=== PATIENT | male | born 1930 | race Caucasian/White ===

== ENCOUNTER 2016-12-03 19:31 | Inpatient (IN) | payer MEDICARE ==
[~2016-12-03] VITALS: Ht 188 cm; Wt 65.9 kg
[2016-12-03] MEDS ORDERED: SODIUM CHLORIDE 0.9% 1,000ML IVBOLUS ONE (20:00)
[2016-12-03] MEDS ORDERED: SODIUM CHLORIDE FLUSH 10ML SYR IVF ONE (20:00)
[2016-12-03 20:29] LABS: ASPARTATE AMINO TRANSFERASE 22 U/L (15-37); BLOOD UREA NITROGEN 18 mg/dL (7-18)
[2016-12-03 20:34] LABS: IS PT STATUS REG ER OR PRE ER? YES
[2016-12-04] VITALS (13 sets, daily range): BP systolic 139–174; BP diastolic 56–88
[2016-12-04] MEDS ORDERED: OXYcodone/APAP 5/325MG TABLET ONE (00:42)
[2016-12-04] MEDS ORDERED: ONDANSETRON ODT 4 MG PO PRN (01:30)
[2016-12-04] MEDS ORDERED: ACETAMINOPHEN 325 MG TABLET PO PRN (01:30)
[2016-12-04] MEDS ORDERED: HYDROcodone/APAP 5/325 TABLET PO PRN (01:30)
[2016-12-04] MEDS ORDERED: LABETALOL 5MG/ML, 20ML IV PRN (01:30)
[2016-12-04] MEDS: OXYcodone/APAP 5/325MG TABLET PO PRN ×2 (01:33→11:27)
[2016-12-04] MEDS ORDERED: SODIUM CHLORIDE 0.9% 1,000 ML IV SCH (02:00)
[2016-12-04] MEDS ORDERED: FUROSEMIDE 20 MG/2 ML IVPush ONE (05:00)
[2016-12-04 06:48] LABS: RAPID INFLUENZA A Negative (Negative); RAPID INFLUENZA B Negative (Negative)
[2016-12-04 08:47] LABS: TOTAL IRON BINDING CAPACITY 387 mcg/dL (250-450)
[2016-12-04] MEDS: FUROSEMIDE 20 MG/2 ML IV SCH (10:35)
[2016-12-04] MEDS: PANTOPRAZOLE 40 MG IV IVP SCH (10:36)
[2016-12-04] MEDS ORDERED: MOVIPREP POWDER 1 PREP KIT PO ONE (16:00)
[2016-12-05] VITALS (12 sets, daily range): BP systolic 133–189; BP diastolic 69–87
[2016-12-05 02:05] LABS: BLOOD UREA NITROGEN 15 mg/dL (7-18)
[2016-12-05] MEDS: OXYcodone/APAP 5/325MG TABLET PO PRN (03:53)
[2016-12-05] MEDS: PANTOPRAZOLE 40 MG IV IVP SCH ×2 (07:48→08:52)
[2016-12-05] MEDS ORDERED: MOVIPREP POWDER 1 PREP KIT PO ONE (08:30)
[2016-12-05] MEDS: IRON SUCROSE COMPLEX 100MG/5ML IV SCH (08:52)
[2016-12-05] MEDS ORDERED: D5%-0.45% NACL 1,000 ML IV SCH (09:00)
[2016-12-05] MEDS: FUROSEMIDE 20 MG/2 ML IV SCH (09:25)
[2016-12-05] MEDS ORDERED: PROPOFOL 10 MG/ML, 20ML ONE (09:41)
[2016-12-05] MEDS ORDERED: ACETAMINOPHEN 325 MG TABLET PO PRN (14:30)
[2016-12-05] MEDS ORDERED: OXYcodone 5 MG/5 ML ORAL.SOL UDC PO PRN (14:30)
[2016-12-05] MEDS ORDERED: HYDROmorphone 1 MG/ML, 1ML IV PRN ×2 (14:30→17:00)
[2016-12-05] MEDS ORDERED: ALBUTEROL/IPRATROPIUM 2.5MG/0.5MG, 3 ML NPPB PRN (14:30)
[2016-12-05] MEDS ORDERED: LABETALOL 5MG/ML, 20ML IV PRN ×2 (14:30→17:00)
[2016-12-05] MEDS ORDERED: MIDAZOLAM 1 MG/ML, 2ML IV PRN (14:30)
[2016-12-05] MEDS ORDERED: ONDANSETRON 2MG/ML, 2ML IVPush PRN ×2 (14:30→17:00)
[2016-12-05] MEDS ORDERED: EPHEDRINE 50 MG/ML, 1ML IVPush PRN (14:30)
[2016-12-05] MEDS ORDERED: PROMETHAZINE 25 MG/ML, 1ML IV PRN (14:30)
[2016-12-05] MEDS ORDERED: MIDAZOLAM 1 MG/ML, 2ML ONE (15:25)
[2016-12-05] MEDS ORDERED: FENTANYL PF 100 MCG/2ML ONE ×2 (15:25→17:14)
[2016-12-05] MEDS ORDERED: FENTANYL PF 100 MCG/2ML IV PRN (17:00)
[2016-12-05] MEDS ORDERED: hydrALAzine 20 MG/ML, 1ML ONE (17:14)
[2016-12-05] MEDS: FENTANYL PF 100 MCG/2ML IV PRN ×2 (17:16→17:22)
[2016-12-06 02:47] VITALS: BP 154/83
[2016-12-06 07:13] VITALS: BP 143/73
[2016-12-06] MEDS: IRON SUCROSE COMPLEX 100MG/5ML IV SCH (10:09)
[2016-12-06] MEDS: ENOXAPARIN 40 MG/0.4 ML SQ SCH (11:45)
[2016-12-06 13:42] VITALS: BP 138/67
[2016-12-06 20:04] VITALS: BP 143/66
[2016-12-07 03:51] VITALS: BP 138/75
[2016-12-07 09:36] VITALS: BP 124/71
[2016-12-07] MEDS: ENOXAPARIN 40 MG/0.4 ML SQ SCH (09:38)
[2016-12-07] MEDS ORDERED: ACET325T14 PO (10:55)
[2016-12-07] MEDS ORDERED: FERR324T8 PO (10:55)
[2016-12-07] MEDS ORDERED: ALBU8.5H3 IH (10:55)
[2016-12-07] MEDS ORDERED: DOCU-30 PO (10:55)
[2016-12-07] MEDS ORDERED: Oxycodone Hcl/Acetaminophen PO (10:55)
[2016-12-07] MEDS ORDERED: MULT-412 PO (10:55)
[2016-12-07] MEDS ORDERED: PNEUMOCOCCAL 23 VACCINE IM-VACC ONE (11:30)
== END 2016-12-07 14:21 | DRG 394 ==
LOC: ED 23:59 → EDIP 12-04 00:15 → ICU 12-04 02:44 → 3NW 12-04 17:20
PROVIDERS: ADMIT Hospitalist; ATTEND Hospitalist
PROC: 0T9B70Z Drainage of Bladder with Drainage Device, Via Natural or Artificial Opening (ICD-10-PCS; 2016-12-05)
PROC: 0DBH8ZX Excision of Cecum, Via Natural or Artificial Opening Endoscopic, Diagnostic (ICD-10-PCS; 2016-12-05)
PROC: 0DBK8ZX Excision of Ascending Colon, Via Natural or Artificial Opening Endoscopic, Diagnostic (ICD-10-PCS; 2016-12-05)
PROC: 0DB68ZX Excision of Stomach, Via Natural or Artificial Opening Endoscopic, Diagnostic (ICD-10-PCS; 2016-12-05)
PROC: 30233N1 Transfusion of Nonautologous Red Blood Cells into Peripheral Vein, Percutaneous Approach (ICD-10-PCS; principal; 2016-12-05 14:00)
DX: D12.2 Benign neoplasm of ascending colon (principal); Z68.1 Body mass index [BMI] 19.9 or less, adult; E46 Unspecified protein-calorie malnutrition; D50.0 Iron deficiency anemia secondary to blood loss (chronic); Z66 Do not resuscitate; J44.9 Chronic obstructive pulmonary disease, unspecified; I10 Essential (primary) hypertension; K57.90 Diverticulosis of intestine, part unspecified, without perforation or abscess without bleeding; D12.0 Benign neoplasm of cecum; R26.2 Difficulty in walking, not elsewhere classified; I71.4 Abdominal aortic aneurysm, without rupture; K40.90 Unilateral inguinal hernia, without obstruction or gangrene, not specified as recurrent; M25.471 Effusion, right ankle; Z90.3 Acquired absence of stomach [part of]; Z87.891 Personal history of nicotine dependence; Z87.11 Personal history of peptic ulcer disease; Z79.899 Other long term (current) drug therapy
CPT/HCPCS: 36415; 36430; 70450; 71020; 80048; 80053; 80061; 81003; 83540; 83550; 83735; 84439; 84443; 84484; 85014; 85018; 85025; 85610; 85730; 86850; 86900; 86923; 87400; 88305; 90732; 93005; 93306; J1650; J1756; J2250; J2704; J3010; C9113; J1940; J7030; P9016

== ENCOUNTER 2017-07-22 05:49 | Emergency (ER) | payer MEDICARE, OTHER ==
[~2017-07-22] VITALS: Ht 175.3 cm; Wt 65.3 kg
[~2017-07-22 05:49] MED LIST: ACET325T14 PO; ALBU8.5H8 IH; DOCU-131 PO; FERR324T8 PO; MULT-412 PO; Oxycodone Hcl/Acetaminophen PO
[2017-07-22] MEDS ORDERED: ONDANSETRON 2MG/ML, 2ML ONE (06:21)
[2017-07-22 06:26] LABS: HEMATOCRIT 42.1 % (39.2-51.8); HEMOGLOBIN 14.4 g/dL (13.7-18.0); WHITE BLOOD COUNT 6.3 x10^3/uL (3.4-10)
[2017-07-22] MEDS ORDERED: morphine SULFATE 10 MG/ML, 1ML ONE (06:29)
[2017-07-22] MEDS ORDERED: SODIUM CHLORIDE FLUSH 10ML SYR IVF ONE (06:30)
[2017-07-22] MEDS ORDERED: ONDANSETRON 2MG/ML, 2ML IVPush ONE (06:30)
[2017-07-22 06:36] LABS: ASPARTATE AMINO TRANSFERASE 16 U/L (15-37); BLOOD UREA NITROGEN 15 mg/dL (7-18)
[2017-07-22] MEDS: MORPHINE SULFATE 4 MG/ML, 1ML IVPush PRN ×2 (06:40→08:20)
[2017-07-22] MEDS ORDERED: AMLO5TAB2 PO (06:46)
[2017-07-22] MEDS ORDERED: GABA300C10 PO (06:46)
[2017-07-22] MEDS ORDERED: OMNIPAQUE 350 MG/ML, 100ML BOTTLE ONE (07:43)
[2017-07-22 10:38] VITALS: BP 117/76
== END 2017-07-22 10:41 | disposition home or self-care (01) ==
LOC: ED 08:49
DX: K57.32 Diverticulitis of large intestine without perforation or abscess without bleeding (principal); R33.9 Retention of urine, unspecified; N40.0 Benign prostatic hyperplasia without lower urinary tract symptoms; I10 Essential (primary) hypertension; Z87.891 Personal history of nicotine dependence; M19.90 Unspecified osteoarthritis, unspecified site
CPT/HCPCS: 36415; 74177; 80053; 81003; 83690; 85025; 96374; 96375; 96376; 99285; J2405; Q9967

== ENCOUNTER 2018-02-18 11:57 | Inpatient (IN) | payer MEDICARE ==
[~2018-02-18] VITALS: Ht 188 cm; Wt 68.3 kg
[~2018-02-18 11:57] MED LIST changes: +AMLO5TAB2 PO; +GABA300C10 PO
[2018-02-18] MEDS ORDERED: SODIUM CHLORIDE FLUSH 10ML SYR IVF ONE (12:30)
[2018-02-18] MEDS ORDERED: SODIUM CHLORIDE 0.9% 1,000ML IVBOLUS ONE (12:30)
[2018-02-18] MEDS ORDERED: MORPHINE SULFATE 4 MG/ML, 1ML IVPush ONE (12:30)
[2018-02-18] MEDS ORDERED: ONDANSETRON 2MG/ML, 2ML IVPush ONE (12:30)
[2018-02-18] MEDS ORDERED: MORPHINE SULFATE 4 MG/ML, 1ML ONE (12:38)
[2018-02-18] MEDS ORDERED: ONDANSETRON 2MG/ML, 2ML ONE (12:38)
[2018-02-18 12:58] LABS: BASOPHILS # (AUTO) 0.02 x10^3/uL (0-0.1); BASOPHILS % (AUTO) 0 % (0-1); EOSINOPHILS # (AUTO) 0.27 x10^3/uL (0-0.4); EOSINOPHILS % (AUTO) 4 % (1-7); LYMPHOCYTES # (AUTO) 0.93 x10^3/uL (1-3.4); LYMPHOCYTES % (AUTO) 15 % (22-44); MD NO; MEAN CORPUSCULAR HEMOGLOBIN 31.9 pg (27.5-34.5); MEAN CORPUSCULAR HGB CONC 33.6 g/dL (33.2-36.2); MEAN CORPUSCULAR VOLUME 95.2 fL (81-97); MEAN PLATELET VOLUME 8.3 fL (7.4-10.4); MONOCYTES # (AUTO) 0.46 x10^3/uL (0.2-0.8); MONOCYTES % (AUTO) 7 % (2-9); NEUTROPHILS # (AUTO) 4.78 x10^3/uL (1.8-6.8); NEUTROPHILS % (AUTO) 74 % (42-75); PLATELET COUNT 247 x10^3/uL (130-400); RED BLOOD COUNT 4.49 x10^6/uL (4.38-5.82)
[2018-02-18 13:09] LABS: ALANINE AMINOTRANSFERASE 24 U/L (12-78); ALBUMIN 3.9 g/dL (3.4-5.0); ANION GAP 6 mmol/L (5-15); CALCIUM 8.9 mg/dL (8.5-10.1); CHLORIDE 105 mmol/L (98-107); CREATININE 1.28 mg/dL (0.7-1.3)
[2018-02-18 13:10] LABS: ALKALINE PHOSPHATASE 61 U/L (45-117); BILIRUBIN,TOTAL 0.6 mg/dL (0.2-1.0); TOTAL PROTEIN 7.5 g/dL (6.4-8.2)
[2018-02-18 14:34] LABS: MICROSCOPIC NOT IND
[2018-02-18] MEDS ORDERED: TAMS-11 PO (14:36)
[2018-02-18 14:39] LABS: CULTURE INDICATED? NO
[2018-02-18 15:47] VITALS: BP 166/82
[2018-02-18] MEDS ORDERED: METHOCARBAMOL 500 MG TABLET PO ONE (17:00)
[2018-02-18] MEDS: LIDODERM 5% PATCH TD SCH (17:28)
[2018-02-18] MEDS: SODIUM CHLORIDE 0.9% 1,000 ML IV SCH (17:28)
[2018-02-18] MEDS ORDERED: POLYETHYLENE GLYCOL 17 GM PACKET PO PRN (17:30)
[2018-02-18] MEDS: AMLODIPINE 5 MG TABLET PO SCH (17:30)
[2018-02-18] MEDS ORDERED: ONDANSETRON 2MG/ML, 2ML IVPush PRN (17:30)
[2018-02-18] MEDS ORDERED: morphine SULFATE 10 MG/ML, 1ML IVPush PRN (17:30)
[2018-02-18] MEDS ORDERED: ACETAMINOPHEN 325 MG TABLET PO PRN (17:30)
[2018-02-18] MEDS: ENOXAPARIN 40 MG/0.4 ML SQ SCH (17:31)
[2018-02-18] MEDS: OXYcodone/APAP 5/325MG TABLET PO PRN (19:32)
[2018-02-18] MEDS: FAMOTIDINE 20 MG TABLET PO SCH (19:33)
[2018-02-18] MEDS: GABAPENTIN 300 MG CAPSULE PO SCH (19:33)
[2018-02-18 19:56] VITALS: BP 129/67
[2018-02-18] MEDS: METHOCARBAMOL 750 MG TABLET PO PRN (23:28)
[2018-02-19 02:16] VITALS: BP 128/73
[2018-02-19] MEDS: OXYcodone/APAP 5/325MG TABLET PO PRN ×4 (02:20→20:45)
[2018-02-19 04:58] LABS: BASOPHILS # (AUTO) 0.03 x10^3/uL (0-0.1); BASOPHILS % (AUTO) 1 % (0-1); EOSINOPHILS # (AUTO) 0.36 x10^3/uL (0-0.4); EOSINOPHILS % (AUTO) 7 % (1-7); LYMPHOCYTES # (AUTO) 1.48 x10^3/uL (1-3.4); LYMPHOCYTES % (AUTO) 30 % (22-44); MD NO; MEAN CORPUSCULAR HEMOGLOBIN 31.9 pg (27.5-34.5); MEAN CORPUSCULAR HGB CONC 33.2 g/dL (33.2-36.2); MEAN CORPUSCULAR VOLUME 95.9 fL (81-97); MEAN PLATELET VOLUME 8.6 fL (7.4-10.4); MONOCYTES # (AUTO) 0.45 x10^3/uL (0.2-0.8); MONOCYTES % (AUTO) 9 % (2-9); NEUTROPHILS # (AUTO) 2.68 x10^3/uL (1.8-6.8); NEUTROPHILS % (AUTO) 54 % (42-75); PLATELET COUNT 255 x10^3/uL (130-400); RED BLOOD COUNT 3.97 x10^6/uL (4.38-5.82); RED CELL DISTRIBUTION WIDTH 14.9 % (9.4-14.8)
[2018-02-19 05:02] LABS: CALCIUM 8.2 mg/dL (8.5-10.1); CREATININE 1.19 mg/dL (0.7-1.3)
[2018-02-19 05:16] LABS: ANION GAP 9 mmol/L (5-15); CHLORIDE 109 mmol/L (98-107)
[2018-02-19] MEDS: METHOCARBAMOL 750 MG TABLET PO PRN ×3 (05:43→20:45)
[2018-02-19] MEDS: SODIUM CHLORIDE 0.9% 1,000 ML IV SCH ×2 (05:56→20:53)
[2018-02-19 07:46] VITALS: BP 138/71
[2018-02-19] MEDS: FAMOTIDINE 20 MG TABLET PO SCH ×2 (08:33→20:46)
[2018-02-19] MEDS: AMLODIPINE 5 MG TABLET PO SCH (08:33)
[2018-02-19] MEDS: MULTIVITAMIN 1 TABLET PO SCH (08:33)
[2018-02-19] MEDS: TAMSULOSIN 0.4 MG CAP.ER.24H PO SCH (08:33)
[2018-02-19] MEDS: ONDANSETRON ODT 4 MG PO PRN (12:24)
[2018-02-19] MEDS ORDERED: GADOBUTROL 10 MMOL/10 ML PFS ONE (13:41)
[2018-02-19 14:55] VITALS: BP 100/57
[2018-02-19] MEDS: ENOXAPARIN 40 MG/0.4 ML SQ SCH (17:23)
[2018-02-19] MEDS: LIDODERM 5% PATCH TD SCH (17:23)
[2018-02-19 18:35] VITALS: BP 112/63
[2018-02-19] MEDS ORDERED: methylPREDNISolone 4mg DOSE PACK PO ONE (20:30)
[2018-02-19] MEDS: GABAPENTIN 300 MG CAPSULE PO SCH (20:45)
[2018-02-19] MEDS: DOCUSATE 100 MG CAPSULE PO PRN (20:46)
[2018-02-20 02:50] VITALS: BP 134/71
[2018-02-20] MEDS: METHOCARBAMOL 750 MG TABLET PO PRN ×3 (02:52→15:01)
[2018-02-20] MEDS: OXYcodone/APAP 5/325MG TABLET PO PRN ×3 (02:52→15:01)
[2018-02-20 07:08] VITALS: BP 138/64
[2018-02-20] MEDS: methylPREDNISolone 4mg DOSE PACK PO SCH ×2 (08:13→12:51)
[2018-02-20] MEDS ORDERED: METH4TAB6 PO (08:17)
[2018-02-20] MEDS ORDERED: METH750T2 PO (08:17)
[2018-02-20] MEDS ORDERED: LIDO700A20 TD (08:17)
[2018-02-20] MEDS: ONDANSETRON ODT 4 MG PO PRN (08:49)
[2018-02-20] MEDS: AMLODIPINE 5 MG TABLET PO SCH (09:22)
[2018-02-20] MEDS: TAMSULOSIN 0.4 MG CAP.ER.24H PO SCH (09:22)
[2018-02-20] MEDS: MULTIVITAMIN 1 TABLET PO SCH (09:22)
[2018-02-20] MEDS: FAMOTIDINE 20 MG TABLET PO SCH (09:23)
[2018-02-20] MEDS: SODIUM CHLORIDE 0.9% 1,000 ML IV SCH (09:23)
[2018-02-20] MEDS: DOCUSATE 100 MG CAPSULE PO PRN ×2 (09:27→15:02)
[2018-02-20] MEDS ORDERED: ONDA4TAB13 SL (11:10)
[2018-02-20 14:27] VITALS: BP 153/76
== END 2018-02-20 15:45 | disposition home or self-care (01) | DRG 556 ==
LOC: ED 14:28 → EDIP 14:47 → 3NW 15:43
PROVIDERS: ADMIT Internal Medicine; ATTEND Internal Medicine
DX: M79.661 Pain in right lower leg (principal); I50.30 Unspecified diastolic (congestive) heart failure; M16.0 Bilateral primary osteoarthritis of hip; I11.0 Hypertensive heart disease with heart failure; J44.9 Chronic obstructive pulmonary disease, unspecified; K27.9 Peptic ulcer, site unspecified, unspecified as acute or chronic, without hemorrhage or perforation; N40.0 Benign prostatic hyperplasia without lower urinary tract symptoms; Z87.11 Personal history of peptic ulcer disease; G62.9 Polyneuropathy, unspecified; M54.5 Low back pain; G89.29 Other chronic pain; Z87.891 Personal history of nicotine dependence
CPT/HCPCS: 36415; 71045; 72157; 72158; 80048; 80053; 81003; 85025; 93005; 96361; 96374; 99285; A9585; J1650; J2405; J7509; Q0162; J7030